=== PATIENT | female | born 1980 | race Caucasian/White ===

== ENCOUNTER 2018-08-04 12:29 | Outpatient (CLI) | payer MEDICAID, SELFPAY ==
[2018-08-04 13:16] LABS: HCT 38.9 % (36.0-46.0); Mean Corp. HGB Concentration 33.4 g/dL (32.0-36.0); Mean Corpuscular Hemoglobin 28.1 pg (27.0-33.0); Platelet Count 240 x1000/uL (130-400); RBC 4.63 m/cumm (4.00-5.20); RBC Distribution Width 12.5 % (11.7-14.6)
[2018-08-04 13:47] LABS: Hemoglobin A1C 5.6 % (4.5-6.2)
[2018-08-04 14:07] LABS: TSH (W/Ref FT4) 3.89 uIU/mL (0.358-3.74)
[2018-08-04 14:47] LABS: FREE T4 0.94 ng/dL (0.76-1.46)
[2018-08-04 21:41] LABS: Estradiol 23 pg/ml
[2018-08-05 09:41] LABS: Hepatitis B Surface Ag Negative (NEGAT)
[2018-08-05 10:26] LABS: FSH 9.4 mIU/ml; Prolactin 8.3 ng/ml
[2018-08-05 10:35] LABS: HIV-1/2 Ag & Ab Screen Negative (NEGAT)
[2018-08-05 10:36] LABS: Hepatitis C Ab w Rflx HCV PCR Negative (NEGAT)
[2018-08-05 11:02] LABS: Hep B Core Antibody Negative (NEGAT)
[2018-08-05 13:18] LABS: Rubella IgG Ab (UVM) Positive; Syphilis Serology (RPR) Negative (Negative)
[2018-08-06 16:03] LABS: Antimullerian Hormone 0.1 ng/mL (0.9-9.5)
== END 2018-08-04 12:49 ==
DX: Z31.69 Encounter for other general counseling and advice on procreation (principal); Z11.3 Encounter for screening for infections with a predominantly sexual mode of transmission; Z11.4 Encounter for screening for human immunodeficiency virus [HIV]; Z11.59 Encounter for screening for other viral diseases
CPT/HCPCS: 36415; 85027; 86704; 86803; 86900; 86901; 87340; 87389; 82670; 83001; 83036; 83520; 84146; 84439; 84443; 86592; 86762

== ENCOUNTER 2018-08-08 10:11 | Outpatient (REF) | payer MEDICAID, SELFPAY ==
--- NOTE | 2018-08-08 09:40 | PAPFT_PTH ---
PATIENT: TARIQ HAWKINS LOC: [facility] U#:[id number] AGE/SX: 37/F ROOM: RE08/08/[address]: Jena Virk : 1980 BED: DIS: 08/08/2018 SPEC #: [id number] RECD: 08/08/18 12:51 STATUS: [place] REGonzalo #: [id number] NILA: 08/08/18 09:[address]: Jena Virk DEPT: [facility] Cytology RECD BY: Jo Ann White ENTERED: 08/08/18 12:52 SP TYPE: PAPFT OT DR: None Tissues: 1 - CX/ENDOCX FOR PAP SMEARS Procedures: PAP THIN PREP/[facility] Screening HPV DNA PROBE Comments: [id number]
== END 2018-08-08 10:31 ==
LOC: LBN 10:11
PROVIDERS: Visit Provider Obstetrics & Gynecology Gynecology
DX: Z12.4 Encounter for screening for malignant neoplasm of cervix (principal); Z11.51 Encounter for screening for human papillomavirus (HPV)
CPT/HCPCS: 88142; 87624